=== PATIENT | male | born 1995 | race Caucasian/White ===

== ENCOUNTER 2019-08-22 06:53 | Emergency (ER) | payer OTHER ==
--- NOTE | 2019-08-22 07:17 | ERPHSYRPT ---
- History of Present Illness Time Seen by Provider: 08/22/19 07:05 Source: patient, family Exam Limitations: no limitations Patient Subjective Stated Complaint: lower back pain Triage Nursing Assessment: Pt states "I have lower back pain and can barely stand." Physician History: 24 y/o white male presents 24 hours after feeling a popping sensation in lower back. pain worse this am. can hardly stand up. no urinary sx. pain shooting down right buttock and leg. Timing/Duration: today Method of Injury: twisted, turning Quality: burning, radiating Back Pain Location: lumbar spine Back Pain Radiation: buttocks, upper legs Severity of Pain-Max: moderate Severity of Pain-Current: moderate Previous symptoms: no prior history Allergies/Adverse Reactions: No Known Drug Allergies Allergy (Unverified 08/22/19 07:09) Hx Tetanus, Diphtheria Vaccination/Date Given: No Hx Influenza Vaccination/Date Given: No Hx Pneumococcal Vaccination/Date Given: No Immunizations Up to Date: Yes - Review of Systems Constitutional: No Symptoms Eyes: No Symptoms Ears, Nose, & Throat: No Symptoms Respiratory: No Symptoms Cardiac: No Symptoms Abdominal/Gastrointestinal: No Symptoms Genitourinary Symptoms: No Symptoms Musculoskeletal: Back Pain Skin: No Symptoms Neurological: No Symptoms Psychological: No Symptoms Endocrine: No Symptoms Hematologic/Lymphatic: No Symptoms Immunological/Allergic: No Symptoms All Other Systems: Reviewed and Negative - Past Medical History Pertinent Past Medical History: No Neurological History: No Pertinent History ENT History: No Pertinent History Cardiac History: No Pertinent History Respiratory History: No Pertinent History Endocrine Medical History: No Pertinent History Musculoskeletal History: No Pertinent History GI Medical History: No Pertinent History History: No Pertinent History Psycho-Social History: No Pertinent History Male Reproductive Disorders: No Pertinent History - Past Surgical History Past Surgical History: No Neuro Surgical History: No Pertinent History Cardiac: No Pertinent History Respiratory: No Pertinent History Gastrointestinal: No Pertinent History Genitourinary: No Pertinent History Musculoskeletal: No Pertinent History Male Surgical History: No Pertinent History - Social History Smoking Status: Current every day smoker How long have you smoked: years Exposure to second hand smoke: Yes Drug Use: none Patient Lives Alone: No - Nursing Vital Signs Nursing Vital Signs: Initial Vital Signs Temperature 98.0 F 08/22/19 07:02 Pulse Rate 62 08/22/19 07:02 Respiratory Rate 18 08/22/19 07:02 Blood Pressure 121/54 08/22/19 07:02 O2 Sat by Pulse Oximetry 100 08/22/19 07:02 Pain Scale Pain Intensity [Lower Back] 8 Pain Intensity 5 - Physical Exam General Appearance: mild distress, alert, anxiety Eye Exam: PERRL/EOMI, eyes nml inspection Ears, Nose, Throat Exam: normal ENT inspection, moist mucous membranes Neck Exam: normal inspection, non-tender, supple, full range of motion Respiratory Exam: No chest tenderness Gastrointestinal Exam: No tenderness Rectal Exam: not done Back Exam: normal inspection, normal range of motion, No CVA tenderness, No vertebral tenderness Extremity Exam: normal inspection, normal range of motion, pelvis stable Neurologic Exam: alert, oriented x 3, cooperative, 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 II-XII nml as tested Skin Exam: normal color, warm, dry Lymphatic Exam: No adenopathy SpO2 Interpretation: normal SpO2: 100 O2 Delivery: Room Air Ordered Tests: Active Orders 24 hr Category Date Time Status LUMBAR LIMITED (2 OR 3 VIEWS) Stat Exams 08/22/19 07:17 Taken Medication Summary Discontinued Medications Generic Name Dose Route Start Last Admin Trade Name Bongq PRN Reason Stop Dose Admin Methylprednisolone Sodium Succinate 125 mg 08/22/19 07:20 08/22/19 07:35 Solu-Medrol 125 Mg IM 08/22/19 07:21 125 mg STAT ONE Administration Methylprednisolone Sodium Succinate Confirm 08/22/19 07:22 Solu-Medrol 125 Mg Administered 08/22/19 07:23 Dose 125 mg .ROUTE .STK-MED ONE Orphenadrine Citrate 60 mg 08/22/19 07:19 08/22/19 07:35 Norflex 60 Mg/2 Ml IM 08/22/19 07:20 60 mg STAT ONE Administration Orphenadrine Citrate Confirm 08/22/19 07:22 Norflex 60 Mg/2 Ml Administered 08/22/19 07:23 Dose 60 mg .ROUTE .STK-MED ONE - Progress Progress: improved Progress Note: 08/22/19 09:02 lumbar spine-? old mild compression of l5. no acute fx or subluxation Counseled pt/family regarding: diagnosis, need for follow-up, rad results - Departure Departure Disposition: Home Clinical Impression: Low back pain, Sciatica Condition: Stable Critical Care Time: No Referrals: DANAY MOURA [Primary Care Provider] - Additional Instructions: follow up with primary doctor for further management. Forms: Work/School Release Form Prescriptions: Carisoprodol 350 mg [Soma 350 mg] 350 mg PO Q8H PRN PRN #10 tablet PRN Reason: Muscle Spasms Prednisone 10 mg [Deltasone 10 mg] 10 mg PO TID #12 tablet
[2019-08-22] MEDS ORDERED: Norflex 60 MG/2 ML IM ONE (07:19)
[2019-08-22] MEDS ORDERED: solu-MEDROL 125 MG IM ONE (07:20)
[2019-08-22] MEDS ORDERED: Norflex 60 MG/2 ML ONE (07:22)
[2019-08-22] MEDS ORDERED: solu-MEDROL 125 MG ONE (07:22)
[2019-08-22 08:11] VITALS: BP 115/65
[2019-08-22 09:00] VITALS: PULSE 57
[2019-08-22 09:04] VITALS: O2SAT 100
--- NOTE | 2019-08-22 09:08 | XRAY ---
Indication: Low back pain following lifting. 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 No other bony, articular, or soft tissue abnormalities.
== END 2019-08-22 09:27 | disposition home or self-care (01) ==
LOC: ED 06:53
DX: M54.40 Lumbago with sciatica, unspecified side (principal)
CPT/HCPCS: 72100; 96372; 99284; J2360; J2930

== ENCOUNTER 2019-08-29 12:14 | Emergency (ER) | payer OTHER ==
[2019-08-29 12:35] VITALS: BP 122/77; PULSE 75; O2SAT 97
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
== END 2019-08-29 13:56 | disposition home or self-care (01) ==
LOC: ED 12:14 → EEVIPCON 12:14 → ED 13:56
DX: Z04.1 Encounter for examination and observation following transport accident (principal); V57.5XXA Driver of pick-up truck or van injured in collision with fixed or stationary object in traffic accident, initial encounter
CPT/HCPCS: 70450; 71045; 72125; 72128; 73080; 93005; 99285; L0172

== ENCOUNTER 2019-09-18 05:00 | Observation (INO) | payer BC, OTHER ==
--- NOTE | 2019-09-18 05:18 | ERPHSYRPT ---
- History of Present Illness Source: patient, EMS, other (fiance) Exam Limitations: clinical condition, intoxication Timing/Duration: worse Severity: moderate Associated Symptoms: vomiting, shortness of breath, No nausea, No abdominal pain Hx Tetanus, Diphtheria Vaccination/Date Given: No Hx Influenza Vaccination/Date Given: No Hx Pneumococcal Vaccination/Date Given: No <MARILEE MADDOX - Last Filed: 09/18/19 06:49> <SINAN BUTLER - Last Filed: 09/18/19 08:18> - History of Present Illness Time Seen by Provider: 09/18/19 05:05 Physician History: 24 y/o white male presents via ems with acute alcohol intoxication symptoms. pt breathing on his own and but not answering questions. pt began consuming etoh (1 /2 a fifth of Adiel Beam and 2 beers) yesterday. last etoh between 2 and 3 am. pt has at least 3 seizure episodes. two at home and one in ems en route to this ED. pt vomited twice. pt hit his head when seizing. pt did not use any other illicit drugs per fiance. pt received 2mg iv versed at 0440 (MARILEE MADDOX ) Allergies/Adverse Reactions: No Known Drug Allergies Allergy (Verified 09/18/19 05:25) Home Medications: No Reportable Medications [No Reported Medications] 08/29/19 [History] - Review of Systems Constitutional: No Symptoms Eyes: No Symptoms Ears, Nose, & Throat: No Symptoms Respiratory: No Symptoms Cardiac: No Symptoms Abdominal/Gastrointestinal: No Symptoms Genitourinary Symptoms: No Symptoms Musculoskeletal: No Symptoms Skin: No Symptoms Neurological: No Symptoms, Other (alcohol intoxication) Psychological: Alcohol Abuse Endocrine: No Symptoms Hematologic/Lymphatic: No Symptoms Immunological/Allergic: No Symptoms All Other Systems: Reviewed and Negative <MARILEE MADDOX - Last Filed: 09/18/19 06:49> - Past Medical History Pertinent Past Medical History: No Neurological History: No Pertinent History ENT History: No Pertinent History Cardiac History: No Pertinent History Respiratory History: No Pertinent History Endocrine Medical History: No Pertinent History Musculoskeletal History: No Pertinent History GI Medical History: No Pertinent History History: No Pertinent History Psycho-Social History: No Pertinent History Male Reproductive Disorders: No Pertinent History - Past Surgical History Past Surgical History: Yes Neuro Surgical History: No Pertinent History Cardiac: No Pertinent History Respiratory: No Pertinent History Gastrointestinal: No Pertinent History Genitourinary: No Pertinent History Musculoskeletal: No Pertinent History Male Surgical History: No Pertinent History Other Surgical History: genital ventral cordia?? - Social History Smoking Status: Current every day smoker How long have you smoked: 13 years Exposure to second hand smoke: Yes Drug Use: none Patient Lives Alone: No <MARILEE MADDOX - Last Filed: 09/18/19 06:49> - Physical Exam General Appearance: lethargy (secondary to etoh) Eye Exam: PERRL/EOMI, eyes nml inspection Ears, Nose, Throat Exam: normal ENT inspection, moist mucous membranes Neck Exam: normal inspection, non-tender, supple, full range of motion Respiratory Exam: normal breath sounds, lungs clear, airway intact, No chest tenderness, No respiratory distress Cardiovascular Exam: regular rate/rhythm, normal heart sounds, normal peripheral pulses Gastrointestinal/Abdomen Exam: soft, normal bowel sounds, No tenderness Rectal Exam: not done Back Exam: normal inspection, normal range of motion, No CVA tenderness, No vertebral tenderness Extremity Exam: normal inspection, normal range of motion, pelvis stable Neurologic Exam: alert, oriented x 3, cooperative, glacing machine tender II-XII nml as tested Skin Exam: normal color, warm, dry Lymphatic Exam: No adenopathy SpO2 Interpretation: normal SpO2: 99 O2 Delivery: Room Air <MARILEE MADDOX - Last Filed: 09/18/19 06:49> - Nursing Vital Signs Nursing Vital Signs: Initial Vital Signs Temperature 97.1 F 09/18/19 05:01 Pulse Rate 78 09/18/19 05:01 Respiratory Rate 18 09/18/19 05:01 Blood Pressure 116/62 09/18/19 05:01 O2 Sat by Pulse Oximetry 99 09/18/19 05:01 Pain Scale Pain Intensity 0 - Course Nursing assessment & vital signs reviewed: Yes <MARILEE MADDOX - Last Filed: 09/18/19 06:49> Ordered Tests: Active Orders 24 hr Category Date Time Status Aligner STAT Care 09/18/19 05:25 Active IV Insertion STAT Care 09/18/19 05:24 Active HEAD WITHOUT CONTRAST [CT] Stat Exams 09/18/19 05:26 Taken ACETAMINOPHEN Stat Lab 09/18/19 05:49 Completed CBC W DIFF Stat Lab 09/18/19 05:49 Completed CMP Stat Lab 09/18/19 05:49 Completed ETHYL ALCOHOL Stat Lab 09/18/19 05:49 Completed UA W/RFX UR CULTURE Stat Lab 09/18/19 05:49 Completed Urine Triage Profile Stat Lab 09/18/19 05:49 Completed Medication Summary Discontinued Medications Generic Name Dose Route Start Last Admin Trade Name Valeriy PRN Reason Stop Dose Admin Sodium Chloride Confirm 09/18/19 05:20 Sodium Chloride 0.9% 1000 Ml Administered 09/18/19 05:21 Dose 1,000 mls @ ud .ROUTE .STK-MED ONE Sodium Chloride 1,000 mls @ 999 mls/hr 09/18/19 05:24 09/18/19 07:16 Sodium Chloride 0.9% 1000 Ml IV 09/18/19 06:24 Infused .Q1H1M STA Infusion Lorazepam Confirm 09/18/19 05:37 Ativan 2 Mg/1 Ml Vial Administered 09/18/19 05:38 Dose 2 mg .ROUTE .STK-MED ONE Lorazepam 1 mg 09/18/19 05:39 09/18/19 05:48 Ativan 2 Mg/1 Ml Vial IV 09/18/19 05:40 1 mg STAT ONE Administration Ondansetron HCl 4 mg 09/18/19 05:24 09/18/19 07:15 Zofran 4 Mg/2 Ml Vial IV 09/18/19 05:25 Not Given STAT ONE Lab/Rad Data: Laboratory Result Diagrams 09/18/19 05:49 09/18/19 05:49 Laboratory Results 09/18/19 09/18/19 09/18/19 Range/Units 05:49 05:49 05:49 WBC (4.0-10.5) K/mm3 RBC (4.1-5.6) M/mm3 Hgb (12.5-18.0) gm/dl Hct (42-50) % MCV (78-100) fl MCH (26-32) pg MCHC (32-36) g/dl RDW (11.5-14.0) % Plt Count (150-450) K/mm3 MPV (6-9.5) fl Gran % (36.0-66.0) % Eos # (Auto) (0-0.5) Absolute Lymphs (auto) (1.0-4.6) Absolute Monos (auto) (0.0-1.3) Lymphocytes % (24.0-44.0) % Monocytes % (0.0-12.0) % Eosinophils % (0.00-5.0) % Basophils % (0.0-0.4) % Absolute Granulocytes (1.4-6.9) Basophils # (0-0.4) Sodium 146 H (137-145) mmol/L Potassium 3.7 (3.5-5.1) mmol/L Chloride 108 H (98-107) mmol/L Carbon Dioxide 25 (22-30) mmol/L Anion Gap 16.6 H (5-15) MEQ/L BUN 13 (9-20) mg/dL Creatinine 0.96 (0.66-1.25) mg/dL Estimated GFR > 60.0 ML/MIN Glucose 112 H (74-106) mg/dL Calcium 8.9 (8.4-10.2) mg/dL Total Bilirubin 0.90 (0.2-1.3) mg/dL AST 28 (17-59) U/L ALT 24 (0-50) U/L Alkaline Phosphatase 64 (38-126) U/L Serum Total Protein 7.6 (6.3-8.2) g/dL Albumin 4.5 (3.5-5.0) g/dL Urine Color COLORLESS (YELLOW) Urine Appearance CLEAR (CLEAR) Urine pH 6.0 (5-6) Ur Specific [place] 1.003 (1.005-1.025) Urine Protein NEGATIVE (Negative) Urine Ketones NEGATIVE (NEGATIVE) Urine Blood NEGATIVE (0-5) [place]/ul Urine Nitrite NEGATIVE (NEGATIVE) Urine Bilirubin NEGATIVE (NEGATIVE) Urine Urobilinogen NEGATIVE (0-1) mg/dL Ur Leukocyte Esterase NEGATIVE (NEGATIVE) Urine WBC (Auto) NONE (0-5) /HPF Urine RBC (Auto) NONE (0-2) /HPF U Epithel Cells (Auto) NONE (FEW) /HPF Urine Bacteria (Auto) NONE (NEGATIVE) /HPF Urine Mucus (Auto) SLIGHT (NEGATIVE) /HPF Urine Culture Reflexed NO (NO) Urine Glucose NEGATIVE (NEGATIVE) mg/dL Urine Opiates Level NEGATIVE (NEGATIVE) Ur Methadone NEGATIVE (NEGATIVE) Acetaminophen < 10 L (10-30) ug/ml Urine Barbiturates NEGATIVE (NEGATIVE) Ur Phencyclidine (PCP) NEGATIVE (NEGATIVE) Urine Amphetamine NEGATIVE (NEGATIVE) U Benzodiazepine Level NEGATIVE (NEGATIVE) Urine Cocaine NEGATIVE (NEGATIVE) Urine Marijuana (THC) NEGATIVE (NEGATIVE) Ethyl Alcohol 161 H (0-10) mg/dL 09/18/19 Range/Units 05:49 WBC 13.8 H (4.0-10.5) K/mm3 RBC 5.07 (4.1-5.6) M/mm3 Hgb 15.2 (12.5-18.0) gm/dl Hct 45.2 (42-50) % MCV 89.2 (78-100) fl MCH 30.0 (26-32) pg MCHC 33.6 (32-36) g/dl RDW 13.2 (11.5-14.0) % Plt Count 297 (150-450) K/mm3 MPV 8.4 (6-9.5) fl Gran % 86.0 H (36.0-66.0) % Eos # (Auto) 0.04 (0-0.5) Absolute Lymphs (auto) 1.00 (1.0-4.6) Absolute Monos (auto) 0.86 (0.0-1.3) Lymphocytes % 7.3 L (24.0-44.0) % Monocytes % 6.3 (0.0-12.0) % Eosinophils % 0.3 (0.00-5.0) % Basophils % 0.1 (0.0-0.4) % Absolute Granulocytes 11.84 H (1.4-6.9) Basophils # 0.02 (0-0.4) Sodium (137-145) mmol/L Potassium (3.5-5.1) mmol/L Chloride (98-107) mmol/L Carbon Dioxide (22-30) mmol/L Anion Gap (5-15) MEQ/L BUN (9-20) mg/dL Creatinine (0.66-1.25) mg/dL Estimated GFR ML/MIN Glucose (74-106) mg/dL Calcium (8.4-10.2) mg/dL Total Bilirubin (0.2-1.3) mg/dL AST (17-59) U/L ALT (0-50) U/L Alkaline Phosphatase (38-126) U/L Serum Total Protein (6.3-8.2) g/dL Albumin (3.5-5.0) g/dL Urine Color (YELLOW) Urine Appearance (CLEAR) Urine pH (5-6) Ur Specific [place] (1.005-1.025) Urine Protein (Negative) Urine Ketones (NEGATIVE) Urine Blood (0-5) [place]/ul Urine Nitrite (NEGATIVE) Urine Bilirubin (NEGATIVE) Urine Urobilinogen (0-1) mg/dL Ur Leukocyte Esterase (NEGATIVE) Urine WBC (Auto) (0-5) /HPF Urine RBC (Auto) (0-2) /HPF U Epithel Cells (Auto) (FEW) /HPF Urine Bacteria (Auto) (NEGATIVE) /HPF Urine Mucus (Auto) (NEGATIVE) /HPF Urine Culture Reflexed (NO) Urine Glucose (NEGATIVE) mg/dL Urine Opiates Level (NEGATIVE) Ur Methadone (NEGATIVE) Acetaminophen (10-30) ug/ml Urine Barbiturates (NEGATIVE) Ur Phencyclidine (PCP) (NEGATIVE) Urine Amphetamine (NEGATIVE) U Benzodiazepine Level (NEGATIVE) Urine Cocaine (NEGATIVE) Urine Marijuana (THC) (NEGATIVE) Ethyl Alcohol (0-10) mg/dL - Progress Progress: improved Counseled pt/family regarding: lab results, diagnosis <MARILEE MADDOX - Last Filed: 09/18/19 06:49> - Progress Progress: improved Discussed with : Mau Will see patient in: hospital (observation) Counseled pt/family regarding: lab results, diagnosis <SINAN BUTLER - Last Filed: 09/18/19 08:18> - Progress Progress Note: 09/18/19 05:22 pt now much more awake and alert. wants chahal catheter out. 09/18/19 06:[address] butler. i reviewed pt care and pending studies. he accepts and assumes care. (MARILEE MADDOX) <MARILEE MADDOX - Last Filed: 09/18/19 06:49> - Departure Departure Disposition: Observation Critical Care Time: No <SINAN BUTLER - Last Filed: 09/18/19 08:18> - Departure Clinical Impression: Alcohol related seizure Condition: Fair Referrals: DANAY MOURA [Primary Care Provider] -
[2019-09-18] MEDS ORDERED: Sodium Chloride 0.9% 1000 ML 1,000 ML ONE ×2 (05:20→09:02)
[2019-09-18] MEDS ORDERED: Zofran 4 MG/2 ML VIAL IV ONE (05:24)
[2019-09-18] MEDS ORDERED: Sodium Chloride 0.9% 1000 ML 1,000 ML IV STA (05:24)
[2019-09-18] MEDS ORDERED: Ativan 2 MG/1 ML VIAL ONE (05:37)
[2019-09-18] MEDS ORDERED: Ativan 2 MG/1 ML VIAL IV ONE (05:39)
[2019-09-18 05:57] LABS: Absolute Neutrophil Ct (ANC) 11.84 (1.4-6.9); BASOPHIL % 0.1 % (0.0-0.4); Basophil (Absolute #) 0.02 (0-0.4); Eosinophil % 0.3 % (0.00-5.0); Eosinophil (Absolute #) 0.04 (0-0.5); Hematocrit 45.2 % (42-50); Hemoglobin 15.2 gm/dl (12.5-18.0); Lymphocytes % 7.3 % (24.0-44.0); Mean Cell Volume 89.2 fl (78-100); Mean Corpuscular Hgb Concent. 33.6 g/dl (32-36); Mean Platelet Volume 8.4 fl (6-9.5); Monocyte (Absolute #) 0.86 (0.0-1.3); Monocytes % 6.3 % (0.0-12.0); Platelet Count 297 K/mm3 (150-450); Red Blood Count 5.07 M/mm3 (4.1-5.6); Red Cell Distribution Width 13.2 % (11.5-14.0); White Blood Count 13.8 K/mm3 (4.0-10.5)
[2019-09-18 05:59] LABS: Appearance CLEAR (CLEAR); Bilirubin NEGATIVE (NEGATIVE); Blood NEGATIVE Ery/ul (0-5); Glucose NEGATIVE (NEGATIVE); Ketones NEGATIVE (NEGATIVE); Leukocyte Esterase NEGATIVE (NEGATIVE); Mucus SLIGHT /HPF (NEGATIVE); Nitrite NEGATIVE (NEGATIVE); Protein,Urine Dip NEGATIVE (Negative); Specific Gravity 1.003 (1.005-1.025); Urobilinogen NEGATIVE mg/dL (0-1)
[2019-09-18 06:03] LABS: ALBUMIN 4.5 g/dL (3.5-5.0); ALKALINE PHOSPHATASE 64 U/L (38-126); ANION GAP 16.6 MEQ/L (5-15); BLOOD UREA NITROGEN 13 mg/dL (9-20); CHLORIDE 108 mmol/L (98-107); Calcium 8.9 mg/dL (8.4-10.2); Carbon Dioxide 25 mmol/L (22-30); Creatinine 1 0.96 mg/dL (0.66-1.25); ETHYL ALCOHOL 161 mg/dL (0-10); Glucose 112 mg/dL (74-106); Potassium 3.7 mmol/L (3.5-5.1); SGOT/AST 28 U/L (17-59); SGPT/ALT 24 U/L (0-50); SODIUM 146 mmol/L (137-145); Total Protein 7.6 g/dL (6.3-8.2)
[2019-09-18 06:05] LABS: ACETAMINOPHEN < 10 ug/ml (10-30)
[2019-09-18 06:12] LABS: Amphetamine,Urine NEGATIVE (NEGATIVE); Barbiturate,Urine NEGATIVE (NEGATIVE); Benzodiazepine,Urine NEGATIVE (NEGATIVE); Cocaine,Urine NEGATIVE (NEGATIVE); Methadone,Urine NEGATIVE (NEGATIVE); Opiate,Urine NEGATIVE (NEGATIVE); PCP,Urine NEGATIVE (NEGATIVE); THC,Urine NEGATIVE (NEGATIVE)
[2019-09-18] MEDS ORDERED: Ativan 2 MG/1 ML VIAL IV PRN (08:23)
[2019-09-18] MEDS ORDERED: Sodium Chloride 0.9% 1000 ML 1,000 ML IV SCH (08:30)
--- NOTE | 2019-09-18 09:28 | XRAY ---
Indication: Head injury following seizure-like activity. Alcohol intoxication. Multiple contiguous axial images obtained through the head without contrast. Comparison: August 29, 2019. Again normal appearing brain parenchyma, ventricles, and bony calvarium. Visualized paranasal sinuses and mastoid air cells are clear. Impression: Stable normal CT head without contrast exam. CT DI 61.68
[2019-09-18 14:14] VITALS: O2SAT 96
[2019-09-18 17:45] VITALS: BP 92/55; PULSE 65
--- NOTE | 2019-09-19 11:20 | SSS ---
DISCHARGE DIAGNOSES: 1) ALCOHOL INTOXICATION. 2) SEIZURES. HISTORY: The patient is a 24 year-old white male who apparently was having a bachelor green party and got intoxicate with alcohol and apparently had three brief seizures within a five minute period lasting approximately 1 minute to 2 minutes each. The patient does report he has had previous seizures in the past dating back four years or so ago that he had a couple of brief seizures. He has never been on medication for the seizures. The patient reports recently although he has had trouble with his back with back pain. He was working at a [employer] previous to this time. He is currently unemployed. PAST MEDICAL/SURGICAL HISTORY: Otherwise significant for what sounds like anxiety and depression issues. He has been on trazodone and a couple of other medications he is not sure of presently but he has not been taking any medications recently as his prescriptions ran out and he has not been taking any medications. He reports he has been in stress centers before and has not wished to go back to just get his medications therefore he has been off of all of his medications. PHYSICAL EXAMINATION: The patient's vital signs on admission showed his temperature 97.1F, pulse 78, respiratory rate 18 and blood pressure 116/62. O2 saturation 99%. HEENT: Normocephalic, atraumatic. Pupils equal round reactive to light. Extraocular movements intact. Oropharynx is pink and moist. NECK: Supple without lymphadenopathy, thyromegaly or JVD. CHEST: Clear to auscultation. HEART: Regular rate and rhythm. ABDOMEN: Soft. No palpable masses. EXTREMITIES: Without cyanosis, clubbing or edema. NEUROLOGIC: The patient is alert and oriented x3. No focal deficits. LAB DATA AND TESTS: The patient's urine drug screen was negative. He had white count of 13,800, hemoglobin 15.2, PLT count 297,000 with what appeared to be 86% granulocytes. His metabolic panel showed his glucose 112, BUN 13, creatinine 0.96. Liver enzymes are normal. His ETOH was noted to be 161 on admission. UA was normal. He had CT scan of the head which was normal. He apparently had another on 08/29/2019 which was normal as well. ASSESSMENT: A patient with alcoholic intoxication. He is now cleared up, alert and oriented x3, requesting to go home. He has had no further activity of seizure since admission to the emergency room over 12 hours ago. The patient is felt to be ready for discharge home at this time to follow up in the office in a week. We will arrange for an outpatient electroencephalogram. He has been instructed to stay away from alcohol, to avoid heights and he is not to drive until he has had further evaluation. The patient and his significant other have agreed to the above restrictions at this time and will bring him back to the emergency room if he has a seizure lasting more than a couple of minutes.
== END 2019-09-18 17:40 | disposition home or self-care (01) ==
LOC: ED 05:00 → EEVIPCON 08:50 → MED SURG 08:50
PROVIDERS: ADMIT Family Medicine; ATTEND Family Medicine
DX: F10.129 Alcohol abuse with intoxication, unspecified (principal); G40.909 Epilepsy, unspecified, not intractable, without status epilepticus
CPT/HCPCS: 36000; 36415; 51702; 70450; 80053; 80307; 81001; 85025; 93041; 94762; 96360; 96374; 99285; G0378; G0480; G0481; J2060